=== PATIENT | female | born 1995 | race Caucasian/White ===

== ENCOUNTER 2016-08-11 16:22 | Emergency (ER) | payer MEDICAID, OTHER ==
[~2016-08-11] VITALS: Ht 165.1 cm; Wt 59.5 kg
[2016-08-11 16:45] VITALS: Ht 165.1 cm; Wt 59.5 kg
[2016-08-11 19:06] LABS: ADD SCAN DIFF NO
[2016-08-11 19:13] LABS: BASOPHIL # 0.1 10^3/ul (0.0-0.1); BASOPHILS % 0.6 % (0.0-2.0); EOSINOPHILS # 0.2 10^3/ul (0.0-0.5); EOSINOPHILS % 1.6 % (0.0-7.0); HEMATOCRIT 38.1 % (37.0-47.0); LYMPHOCYTES # 2.8 10^3/ul (0.8-2.9); LYMPHOCYTES % 23.3 % (15.0-51.0); MEAN CORPUSCULAR HEMOGLOBIN 29.1 pg (29.0-33.0); MEAN CORPUSCULAR HGB CONC 34.1 g/dl (32.0-37.0); MEAN CORPUSCULAR VOLUME 85.4 fl (82.0-101.0); MONOCYTE # 0.9 10^3/ul (0.3-0.9); NEUTROPHIL # 8.1 10^3/ul (1.6-7.5); NEUTROPHILS % 67.1 % (39.0-77.0); PLATELET COUNT 372 10^3/UL (140-415); RED BLOOD COUNT 4.46 10^6/ul (4.20-5.40); RED CELL DISTRIBUTION WIDTH 12.9 % (11.5-14.5); WHITE BLOOD COUNT 12.1 10^3/ul (4.8-10.8)
[2016-08-11 19:14] LABS: ADD UMIC YES; URINE BILIRUBIN (Dip) NEGATIVE (NEGATIVE); URINE BLOOD (Dip) TRACE (NEGATIVE); URINE COLOR LT. YELLOW (YELLOW); URINE GLUCOSE (Dip) NEGATIVE (NEGATIVE); URINE KETONES (Dip) NEGATIVE (NEGATIVE); URINE LEUKOCYTE ESTERASE (Dip) 1+ (NEGATIVE); URINE NITRITE (Dip) NEGATIVE (NEGATIVE); URINE TOTAL PROTEIN (Dip) NEGATIVE (NEGATIVE); URINE UROBILINOGEN (Dip) 0.2 E.U./dL (0.1-1.0)
[2016-08-11 19:32] LABS: BACTERIA,URINE MODERATE; SQUAMOUS EPITHELIAL CELL,UR MODERATE; URINE RBCS 0-2 /HPF (0)
--- NOTE | 2016-08-11 19:33 | RADRPT ---
PROCEDURE: US OB. CLINICAL INDICATION: Vaginal bleeding TECHNIQUE: Transabdominal views of the pelvis are available for review. COMPARISON: No prior studies are available for comparison. FINDINGS: There is a single intrauterine gestation with the crown-rump length measuring 0.7 cm, corresponding to a gestational age of 6 weeks and 4 days. The heart rate is noted at 122 bpm. The ovaries are normal in size and echogenicity. Normal Doppler flow is identified in both ovaries. The right ovary measures 2.4 x 1.7 cm. The left ovary measures 3.2 x 1.9 cm. There is no free fluid. RPTAT: AA IMPRESSION: Single live intrauterine with an estimated gestational age of 6 weeks and 4 days, based on ultrasound measurements. DEANNA based on ultrasound measurements is 04/02/17. .Sudeep Martinez MD, MD Date Time Electronically viewed and signed by .Sudeep Martinez MD, on 08/11/2016 19:32 .S/
[2016-08-11] MEDS ORDERED: ACETAMINOPHEN 500 MG TAB PO STA (20:18)
[2016-08-11] MEDS ORDERED: ACET500C5 PO (20:21)
[2016-08-11] MEDS ORDERED: CEPH-443 PO (20:21)
--- NOTE | 2016-08-11 20:27 | ERD ---
ER Documentation Chief Complaint Date/Time DATE: 08/11/16 TIME: 20:24 Chief Complaint VAGINAL BLEEDING,7 WEEKS HPI This 21-year-old female presents with vaginal spotting since yesterday. She notices on the toilet tissue. She was a small amount of clot on the tissue. She denies any bleeding when she was wiping. She has some mild low back pain but no pelvic cramping or significant pain. She denies fevers, vomiting, additional symptoms. She is a G1 para 0. ROS All systems reviewed and are negative except as per history of present illness. Medications Home Meds Active Scripts Acetaminophen* (Tylophen*) 500 Mg Capsule, 1 CAP PO Q6H Y for PAIN AND OR ELEVATED TEMP, #15 CAP Prov:EUGENE TABARES MD 08/11/16 Cephalexin* (Keflex*) 500 Mg Capsule, 500 MG PO QID for 5 Days, CAP Prov:EUGENE TABARES MD 08/11/16 Allergies Allergies: Coded Allergies: No Known Allergy (Unverified , 08/11/16) PMhx/Soc Medical and Surgical Hx: pt denies Medical Hx, pt denies Surgical Hx Hx Alcohol Use: No Hx Substance Use: No Hx Tobacco Use: No Smoking Status: Never smoker Physical Exam Vitals Vital Signs Date Time Temp Pulse Resp B/P Pulse Ox O2 Delivery O2 Flow Rate FiO2 08/11/16 16:45 98.0 86 18 124/62 98 Physical Exam Const: [] Alert, [id number] per Head: Atraumatic Eyes: Normal Conjunctiva ENT: Normal External Ears, Nose and Mouth. Neck: Full range of motion..~ No meningismus. Resp: Clear to auscultation bilaterally Cardio: Regular rate and rhythm, no murmurs Abd: Soft, non tender, non distended. Normal bowel sounds Skin: No petechiae or rashes Back: No midline or flank tenderness Ext: No cyanosis, or edema Neur: Awake and alert Psych: Normal Mood and Affect Result Diagram: 08/11/16 5415 Results 24 hrs Laboratory Tests Test 08/11/16 18:55 08/11/16 19:00 White Blood Count 12.110^3/ul Red Blood Count 4.4610^6/ul Hemoglobin 13.0g/dl Hematocrit 38.1% Mean Corpuscular Volume 85.4fl Mean Corpuscular Hemoglobin 29.1pg Mean Corpuscular Hemoglobin Concent 34.1g/dl Red Cell Distribution Width 12.9% Platelet Count 86548^3/UL Mean Platelet Volume 10.0fl Neutrophils % 67.1% Lymphocytes % 23.3% Monocytes % 7.0% Eosinophils % 1.6% Basophils % 0.6% Nucleated Red Blood Cells % 0.0/100WBC Neutrophils # 8.110^3/ul Lymphocytes # 2.810^3/ul Monocytes # 0.910^3/ul Eosinophils # 0.210^3/ul Basophils # 0.110^3/ul Nucleated Red Blood Cells # 0.010^3/ul Urine Color LT. YELLOW Urine Clarity SLIGHTLY CLOUDY Urine pH 6.0 Urine Specific [place] 1.025 Urine Ketones NEGATIVE Urine Nitrite NEGATIVE Urine Bilirubin NEGATIVE Urine Urobilinogen 0.2 E.U./dL Urine Leukocyte Esterase 1+ Urine Microscopic RBC 0-2/HPF Urine Microscopic WBC 5-10/HPF Urine Squamous Epithelial Cells MODERATE Urine Bacteria MODERATE Urine Hemoglobin TRACE Urine Glucose NEGATIVE% Urine Total Protein NEGATIVE Current Medications Medications (Trade) Dose Ordered Sig/Usha Route PRN Reason Start Time Stop Time Status Last Admin Dose Admin Cephalexin (Keflex) 500 mg ONCE ONCE PO 08/11/16 20:30 08/11/16 20:31 Acetaminophen (Tylenol Tab) 500 mg ONCE STAT PO 08/11/16 20:18 08/11/16 20:27 DC Procedures/MDM Urine shows leukocytes and bacteria and white blood cells. CBC shows slight leukocytosis otherwise no acute findings. Pelvic ultrasound shows a 6 week intrauterine with positive heart tones without evidence of adnexal or masses or acute complications. Patient was given Keflex 500 mg of mouth and Tylenol 500 mg by mouth. Patient is Rh+. Patient has signs of UTI and will be treated for this and vaginal bleeding of uncertain etiology first trimester without current evidence of adnexal , acute complications. She will be discharged home with follow-up with primary doctor and instructed to return to the ER for new or worsening symptoms. Signs or symptoms are not consistent with appendicitis, tubo-ovarian abscess, PID, Additional causes of lower abdominal or back pain or vaginal bleeding Departure Diagnosis: Primary Impression: UTI (urinary tract infection) Urinary tract infection type: acute cystitis Hematuria presence: without hematuria Qualified Code: N30.00 - Acute cystitis without hematuria Additional Impression: Vaginal bleeding in patient at less than 20 weeks ges... Condition: Stable Patient Instructions: Understanding Urinary Tract Infections (UTIs), Bleeding During Early Additional Instructions: ULTRSONIDO NORMAL. TIENE INFECCION EN ORINA. Cheque otro vez con jaramillo doctor primario en el proximo howard or regresa para mas o nueva simptomas. EUGENE TABARES MD Aug 11, 2016 20:26
[2016-08-11] MEDS ORDERED: CEPHALEXIN 500 MG CAP PO ONE (20:30)
[2016-08-11] MEDS ORDERED: CEPH125S21 PO (20:56)
[2016-08-11 21:11] VITALS: BP 138/68; PULSE 100; RESP 18; TEMP 98
== END 2016-08-11 21:11 | disposition home or self-care (01) ==
LOC: FTE 16:22
DX: O23.41 Unspecified infection of urinary tract in pregnancy, first trimester (principal); R10.2 Pelvic and perineal pain; Z3A.01 Less than 8 weeks gestation of pregnancy
CPT/HCPCS: 36415; 76801; 81001; 84702; 85025; 86900; 86901; Z7502; Z7610; 81003

== ENCOUNTER 2016-10-27 22:33 | Emergency (ER) | payer MEDICAID ==
[~2016-10-27] VITALS: Ht 162.6 cm; Wt 64.0 kg
[~2016-10-27 22:33] MED LIST: ACET500C5 PO; CEPH125S21 PO
[2016-10-27 22:36] VITALS: Ht 162.6 cm; Wt 64.0 kg
[2016-10-27 23:41] LABS: ADD SCAN DIFF NO
[2016-10-27 23:43] LABS: BASOPHILS % 0.3 % (0.0-2.0); EOSINOPHILS # 0.2 10^3/ul (0.0-0.5); EOSINOPHILS % 1.8 % (0.0-7.0); HEMATOCRIT 31.4 % (37.0-47.0); HEMOGLOBIN 10.9 g/dl (12.0-16.0); LYMPHOCYTES # 2.8 10^3/ul (0.8-2.9); MEAN CORPUSCULAR HEMOGLOBIN 29.7 pg (29.0-33.0); MEAN CORPUSCULAR HGB CONC 34.7 g/dl (32.0-37.0); MEAN CORPUSCULAR VOLUME 85.6 fl (82.0-101.0); MONOCYTES % 8.2 % (0.0-11.0); NEUTROPHIL # 7.9 10^3/ul (1.6-7.5); NEUTROPHILS % 66.1 % (39.0-77.0); PLATELET COUNT 365 10^3/UL (140-415); RED BLOOD COUNT 3.67 10^6/ul (4.20-5.40); RED CELL DISTRIBUTION WIDTH 13.4 % (11.5-14.5)
[2016-10-27 23:47] LABS: ADD UMIC NO; URINE BILIRUBIN (Dip) NEGATIVE (NEGATIVE); URINE BLOOD (Dip) NEGATIVE (NEGATIVE); URINE COLOR LT. YELLOW (YELLOW); URINE GLUCOSE (Dip) NEGATIVE (NEGATIVE); URINE KETONES (Dip) NEGATIVE (NEGATIVE); URINE LEUKOCYTE ESTERASE (Dip) NEGATIVE (NEGATIVE); URINE NITRITE (Dip) NEGATIVE (NEGATIVE); URINE TOTAL PROTEIN (Dip) NEGATIVE (NEGATIVE); URINE UROBILINOGEN (Dip) 0.2 E.U./dL (0.1-1.0)
--- NOTE | 2016-10-28 00:01 | RADRPT ---
PROCEDURE: Obstetrical ultrasound greater than 14 weeks CLINICAL INDICATION: Vaginal bleeding TECHNIQUE: Real time sonographic imaging of the gravid uterus is performed transabdominally and mu ltiple static bansal scale and Doppler images are submitted for review as are measurements. The image s are reviewed on the PACS. COMPARISON: 08/11/2016 FINDINGS: There is a single living intrauterine gestation in cephalic presentation. The heart beat is estimated at 150 bpm. The measurements are as follows: BPD:4.14 cm HC:15.23 cm AC:12.84 cm FL:2.81 cm Estimated gestational age is 18 weeks 3 days. The estimated date of delivery is 03/27/2017. The estimated weight is 242 grams. Placenta is posterior and grade 0. There is no evidence of placenta previa or abruption. The amniotic fluid index is normal, the maximum vertical pocket estimated at 3.4 cm. RPTAT:HJJR IMPRESSION: 1. Single viable intrauterine gestation estimated at 18 weeks 3 days, appropriate interval growth co mpared to the exam of 08/11/2016 with the estimated date of delivery 03/27/2017. 2. Posterior grade 0 placenta without abruption or placenta previa. Physician Jarad Date Time Electronically viewed and signed by Physician Jarad on 10/28/2016 00:00 /
--- NOTE | 2016-10-28 00:05 | ERA ---
ER Documentation Chief Complaint Date/Time DATE: 10/28/16 TIME: 00:04 Chief Complaint vaginal bleeding/abd pain x 1 day, states 19 weeks HPI This is a 21-year-old female who is 18 weeks . Denies any medical conditions. Patient has a chief complaint of small amount of bleeding when wiping and pain that she rates 3 out of 10 in the lower pelvic area. Symptoms started approximately 12 hours ago; last bleeding episode occurred 12 hours ago with no bleeding since onset. Rates the pain as a 1-3 out of 10. Patient quantifies bleeding is just a little bit on a piece of toilet paper after wiping. Patient denies any tissue with the bleeding, discharge, foul smell, headache, alleviating factors, aggravating factors or similar symptoms in the past. Patient has not done anything to relieve the symptoms. ROS All systems reviewed and are negative except as per history of present illness. Medications Home Meds Active Scripts Cephalexin* (Keflex* Susp) 125 Mg/5 Ml Susp.recon, 500 MG PO QID for 5 Days, #1 BOTTLE Prov:KAT BONDS PA-C 08/11/16 Acetaminophen* (Tylophen*) 500 Mg Capsule, 1 CAP PO Q6H Y for PAIN AND OR ELEVATED TEMP, #15 CAP Prov:EUGENE TABARES MD 08/11/16 Allergies Allergies: Coded Allergies: No Known Allergy (Unverified , 10/27/16) PMhx/Soc Hx Alcohol Use: No Hx Substance Use: No Hx Tobacco Use: No Physical Exam Vitals Vital Signs Date Time Temp Pulse Resp B/P Pulse Ox O2 Delivery O2 Flow Rate FiO2 10/27/16 22:36 98.5 82 20 120/60 100 Physical Exam Const: Well-appearing no acute distress presenting with significant other. Head: Atraumatic normocephalic Eyes: Normal Conjunctiva ENT: Normal External Ears, Nose and Mouth. Neck: Full range of motion..~ No meningismus. Resp: Clear to auscultation bilaterally Cardio: Regular rate and rhythm, no murmurs Abd: Soft, non tender, non distended. Normal bowel sounds. Palpation of fundal height was within normal limits. No suprapubic tenderness. Skin: No petechiae or rashes Back: No midline or flank tenderness. No CVA tenderness. Ext: No cyanosis, or edema Neur: Awake and alert. Neurovascularly intact bilaterally Psych: Normal Mood and Affect Gynecological exam deferred. Result Diagram: 10/27/16 2323 Results 24 hrs Laboratory Tests Test 10/27/16 23:23 White Blood Count 12.010^3/ul Red Blood Count 3.6710^6/ul Hemoglobin 10.9g/dl Hematocrit 31.4% Mean Corpuscular Volume 85.6fl Mean Corpuscular Hemoglobin 29.7pg Mean Corpuscular Hemoglobin Concent 34.7g/dl Red Cell Distribution Width 13.4% Platelet Count 11576^3/UL Mean Platelet Volume 10.0fl Neutrophils % 66.1% Lymphocytes % 23.0% Monocytes % 8.2% Eosinophils % 1.8% Basophils % 0.3% Nucleated Red Blood Cells % 0.0/100WBC Neutrophils # 7.910^3/ul Lymphocytes # 2.810^3/ul Monocytes # 1.010^3/ul Eosinophils # 0.210^3/ul Basophils # 0.010^3/ul Nucleated Red Blood Cells # 0.010^3/ul Urine Color LT. YELLOW Urine Clarity CLEAR Urine pH 7.0 Urine Specific [place] 1.015 Urine Ketones NEGATIVE Urine Nitrite NEGATIVE Urine Bilirubin NEGATIVE Urine Urobilinogen 0.2 E.U./dL Urine Leukocyte Esterase NEGATIVE Urine Hemoglobin NEGATIVE Urine Glucose NEGATIVE% Urine Total Protein NEGATIVE Beta HCG, Quantitative 95736.0mIU/ml Procedures/MDM Patient was evaluated and worked up for pelvic pain and bleeding as described in the history and physical exam. Patient was given Tylenol in the ED for symptomatic relief with relief of symptoms. The workup included ultrasound, labs and urine analysis. All of the results were within normal limits the current most likely diagnosis is threatened . The ultrasound was read by the radiologist and the impression was as follows: 1. Single viable intrauterine gestation estimated at 18 weeks 3 days, appropriate interval growth compared to the exam of 08/11/2016 with the estimated date of delivery 03/27/2017. 2. Posterior grade 0 placenta without abruption or placenta previa. The plan will thus include conservative therapy and bedrest 2 days with follow- up with her DELIMER. The patient has been given labs and ultrasound results. I reviewed the results with my attending Dr. Law who is agreed with the assessment and plan. At this time I do not suspect infection, ovarian torsion, tubo-ovarian abscess, mechanical obstruction, ectopic , hernia, appendicitis, intestinal ischemia, PID, AAA, diverticulitis or cystitis. The RN Ayaan has been the wood patternmaker apprentice. Patient is well-appearing her pain has subsided. She has verbally responded that they understand their status and treatment plan. The patients vitals are stable, and their current condition is appropriate for discharge. The patient will be given discharge instructions with return precautions. Departure Diagnosis: Primary Impression: Threatened affecting intrauterine Additional Impression: Threatened in second trimester Condition: JAHAIRA Hoyt PA-C Oct 28, 2016 00:05
[2016-10-28 01:43] VITALS: BP 115/54; PULSE 75; RESP 15; TEMP 98.1
== END 2016-10-28 01:44 | disposition home or self-care (01) ==
LOC: FTE 22:33
DX: O20.0 Threatened abortion (principal); Z3A.18 18 weeks gestation of pregnancy
CPT/HCPCS: 36415; 76805; 81003; 84702; 85025; 86900; 86901; Z7502

== ENCOUNTER 2017-01-24 11:53 | Outpatient (CLI) | payer MEDICAID ==
[~2017-01-24] VITALS: Ht 154.9 cm; Wt 71.8 kg
[2017-01-24 12:22] VITALS: Ht 154.9 cm; Wt 71.8 kg
[2017-01-24 12:23] VITALS: BP 122/55; PULSE 66; RESP 20
[2017-01-24] MEDS ORDERED: PRENAT PO (12:26)
[2017-01-24] MEDS ORDERED: FOLI20CA PO (12:26)
--- NOTE | 2017-01-24 13:37 | RADRPT ---
PROCEDURE: OB ultrasound for biophysical profile CLINICAL INDICATION: Gestational diabetes TECHNIQUE: Multiple sonographic images of the pelvis were obtained. Transabdominal views of the g ravid uterus are available for review. The images were reviewed on a PACS workstation. COMPARISON: None FINDINGS: breathing movement = 2/2 tone = 2/2 motion = 2/2 JOSE MANUEL = 2/2 JOSE MANUEL = 15.3 cm Single live intrauterine with cardiac activity of 136 bpm. position is cephal ic. The placenta is posterior. IMPRESSION: 1. Single live intrauterine gestation. 2. Biophysical profile = 8/8. 3. JOSE MANUEL = 15.3 cm. RPTAT: HH .Lynsey Tsai MD, MD Date Time Electronically viewed and signed by .Lynsey Tsai MD, on 01/24/2017 13:36 .G/
--- NOTE | 2017-01-24 15:01 | RADRPT ---
PROCEDURE: Limited obstetric ultrasound CLINICAL INDICATION: Pain TECHNIQUE: Multiple transverse and longitudinal grayscale images of the pelvis were obtained bergeron svaginally.. COMPARISON: same day FINDINGS: The cervix is closed with a length of 4.4 cm. RPTAT: AA IMPRESSION: Cervix length measures 4.4 cm. .Sudeep Martinez MD, MD Date Time Electronically viewed and signed by .Sudeep Martinez MD, on 01/24/2017 15:01 .S/
[2017-01-24] MEDS: LACTATED RINGER'S 1,000 ML IV SCH ×2 (15:24→17:18)
[2017-01-24 19:24] LABS: BASOPHIL # 0.1 10^3/ul (0.0-0.1); BASOPHILS % 0.4 % (0.0-2.0); EOSINOPHILS # 0.1 10^3/ul (0.0-0.5); EOSINOPHILS % 0.8 % (0.0-7.0); HEMATOCRIT 34.1 % (37.0-47.0); HEMOGLOBIN 11.3 g/dl (12.0-16.0); LYMPHOCYTES # 2.5 10^3/ul (0.8-2.9); LYMPHOCYTES % 19.2 % (15.0-51.0); MEAN CORPUSCULAR HEMOGLOBIN 28.1 pg (29.0-33.0); MEAN CORPUSCULAR HGB CONC 33.1 g/dl (32.0-37.0); MEAN CORPUSCULAR VOLUME 84.8 fl (82.0-101.0); MEAN PLATELET VOLUME 11.4 fl (7.4-10.4); MONOCYTE # 0.8 10^3/ul (0.3-0.9); MONOCYTES % 6.4 % (0.0-11.0); NEUTROPHILS % 72.5 % (39.0-77.0); NUCLEATED RED BLOOD CELLS% 0.2 /100WBC (0.0-0.0); PLATELET COUNT 451 10^3/UL (140-415); RED BLOOD COUNT 4.02 10^6/ul (4.20-5.40); RED CELL DISTRIBUTION WIDTH 14.6 % (11.5-14.5)
[2017-01-24 19:29] LABS: ADD UMIC NO; UR ASCORBIC ACID NEGATIVE (NEGATIVE); UR BILIRUBIN (Dip) NEGATIVE (NEGATIVE); UR BLOOD (Dip) NEGATIVE (NEGATIVE); UR CLARITY CLEAR (CLEAR); UR COLOR STRAW (YELLOW); UR GLUCOSE (Dip) NEGATIVE (NEGATIVE); UR KETONES (Dip) NEGATIVE (NEGATIVE); UR LEUKOCYTE ESTERASE (Dip) NEGATIVE Leu/ul (NEGATIVE); UR NITRITE (Dip) NEGATIVE (NEGATIVE); UR SPECIFIC GRAVITY (Dip) 1.004 (1.003-1.030); UR TOTAL PROTEIN (Dip) NEGATIVE (NEGATIVE); UR UROBILINOGEN (Dip) NEGATIVE (NEGATIVE)
--- NOTE | 2017-01-24 19:33 | CONS ---
Date/Time of Note Date/Time of Note DATE: 01/24/17 TIME: 19:23 Consultation Date/Type/Reason Admit Date/Time January 24, 2017 OB triage consult This patient is a 21 years old 1 para 0 with estimated date of confinement of 04/01/2017 which makes her about 30 weeks and 3 days now. She developed gestational diabetes mellitus during this and being followed in the clinic with this diagnosis . she was referred to [facility] clinic here for biophysical profile and [facility]. However apparently she started having contractions and came to triage to be evaluated. On examination she is a well-developed well-nourished lady near term her general vital signs appears to be normal with blood pressure 122/ 55 ,ulse rate 66, respiration 18, temperature 98.9. Her body weight is 71.8 kg. On examination abdomen was soft she just had occasional contraction heart tone was normal with fairly good variability occasional acceleration no decelerations.. A pelvic examination was performed cervix was closed long and thick membrane was intact. Reason for Consultation Laboratory Tests Test 01/24/17 18:30 White Blood Count 13.010^3/ul Red Blood Count 4.0210^6/ul Hemoglobin 11.3g/dl Hematocrit 34.1% Mean Corpuscular Volume 84.8fl Mean Corpuscular Hemoglobin 28.1pg Mean Corpuscular Hemoglobin Concent 33.1g/dl Red Cell Distribution Width 14.6% Platelet Count 23007^3/UL Mean Platelet Volume 11.4fl Neutrophils % 72.5% Lymphocytes % 19.2% Monocytes % 6.4% Eosinophils % 0.8% Basophils % 0.4% Nucleated Red Blood Cells % 0.2/100WBC Neutrophils # (Manual) 9.410^3/ul Lymphocytes # 2.510^3/ul Monocytes # 0.810^3/ul Eosinophils # 0.110^3/ul Basophils # 0.110^3/ul Nucleated Red Blood Cells # 0.010^3/ul Current Medications Medications (Trade) Dose Ordered Sig/Usha Route PRN Reason Start Time Stop Time Status Last Admin Dose Admin Lactated Ringer's (Lr) 1,000 ml @ 125 mls/hr Q8H IV 01/24/17 15:00 01/24/17 17:18 125 MLS/HR Constitutional: No chills, No diaphoresis, No disoriented, No febrile, No improved, No no complaints, No other, No poor po, No requiring IVF, No requiring O2 Eyes: No discharge, No no complaints, No other, No pain, No redness, No visual change ENT: No bleeding, No congestion, No discharge, No dysphagia, No no complaints, No other, No pain, No sore throat Respiratory: No cough, No no complaints, No other, No pain, No pleuritic pain, No shortness of breath, No sputum, No wheezing Cardiovascular: No chest pain, No edema, No lightheadedness, No no complaints, No orthopenea, No other, No palpitations, No paroxysmal nocturnal dyspnea Gastrointestinal: No blood, No constipation, No decreased appetite, No diarrhea , No flatus, No nausea, No no complaints, No other, No pain, No passing stool, No vomiting Genitourinary: other (As I mentioned her cervix was closed thick and high), No bleeding, No discharge, No dysuria, No flank pain, No hematuria, No no complaints Musculoskeletal: No back pain, No bone/joint pain, No neck pain, No no complaints, No other, No restricted range of motion, No swelling Skin: No bruising, No erythema, No laceration, No no complaints, No other, No pruritis, No rash, No skin lesions Neurologic: other (Knee-jerk reflex was normal), No confusion, No dizziness, No focal-weakness, No headache, No no complaints , No seizure, No syncope Endocrine: No dry skin, No no complaints, No other, No polydypsia, No polyuria , No temp intolerance Additional Comments On ultrasound study the report is single live intrauterine gestation with cardiac activity 136 bpm fetus in cephalic position position placenta is posterior biophysical profile was reported 12/27 amniotic fluid index 15.3 cm.Disposition: With these finding patient was discharged home to be followed in her obstetricians clinic and to return to [facility] clinic for follow-up on her GDM. : Social History Smoking Status: Never smoker Exam/Review of Systems Vital Signs Vitals Vital Signs Date Time Temp Pulse Resp B/P Pulse Ox O2 Delivery O2 Flow Rate FiO2 01/24/17 12:23 98.9 66 20 122/55 Results Results 24 hrs Laboratory Tests Test 01/24/17 18:30 White Blood Count Pending Red Blood Count Pending Hemoglobin Pending Hematocrit Pending Mean Corpuscular Volume Pending Mean Corpuscular Hemoglobin Pending Mean Corpuscular Hemoglobin Concent Pending Red Cell Distribution Width Pending Platelet Count Pending Mean Platelet Volume Pending Medications Medications Current Medications Lactated Ringer's (Lr) 1,000 ml @ 125 mls/hr Q8H IV Last administered on t 17:18; Admin Dose 125 MLS/HR; Start 01/24/17 at 15:00 SANJAY BANKS MD Jan 24, 2017 19:33
== END 2017-01-24 20:00 | disposition home or self-care (01) ==
LOC: OBG 11:53 → OBT 11:53
PROVIDERS: ATTEND Obstetrics & Gynecology
DX: O24.419 Gestational diabetes mellitus in pregnancy, unspecified control (principal); Z3A.30 30 weeks gestation of pregnancy
CPT/HCPCS: 59025; 76817; 76818; 81003; 85025; J7120; Z7500; G0463

== ENCOUNTER 2017-01-26 13:14 | Outpatient (CLI) | payer MEDICAID ==
[~2017-01-26] VITALS: Ht 154.9 cm; Wt 72.7 kg
[~2017-01-26 13:14] MED LIST changes: -ACET500C5 PO; -CEPH125S21 PO; +FOLI20CA PO; +PRENAT PO
[2017-01-26 13:32] VITALS: Ht 154.9 cm; Wt 72.7 kg
[2017-01-26 13:33] VITALS: BP 109/67; PULSE 93; RESP 20
--- NOTE | 2017-01-26 15:07 | RADRPT ---
PROCEDURE: US OB biophysical profile. CLINICAL INDICATION: decreased movements, GDM TECHNIQUE: Multiple sonographic images of the pelvis were obtained. The images were reviewed on a PACS workstation. COMPARISON: US PELVIS 01/24/2017 FINDINGS: There is a single viable intrauterine gestation. Cardiac activity is present with 163 beats per min onelia. There is a vertex presentation. The placenta is posterior. There is no evidence of placental abruption. There is a normal amount of amniotic fluid with an JOSE MANUEL = 17.6 cm. Biophysical profile: movement 2/2 tone 2/2. breathing 2/2 JOSE MANUEL 2/2 Total 12/27 RPTAT: AA . IMPRESSION: Normal biophysical profile. . .Sudeep Martinez MD, MD Date Time Electronically viewed and signed by .Sudeep Martinez MD, MD on 01/26/2017 15:06 .S/
--- NOTE | 2017-01-26 16:20 | TRIAGE ---
OB Triage Datetime Report Generated by CPN: 01/26/2017 16:19 Datetime: 01/26/2017 15:35 Stage of : OB Triage Datetime: 01/26/2017 15:30 Stage of : OB Triage Datetime: 01/26/2017 15:21 Labor Evaluation Frequency: 0 Monitor Mode: External Quality: Mild Resting Tone [place]: Relaxed Heart Rate FHR Baseline Rate: 135 Monitor Mode: External US Variability: Moderate 6-25 bpm Accelerations: 10X10 Decelerations: None Category: Category I Pain Assessment Pain Scale: 0 Pain Presence: None/Denies Pain Type: N/A Pain Goal: 3 Pain Relief Measures: Comfort Measures Datetime: 01/26/2017 14:35 Labor Evaluation Frequency: 0 Monitor Mode: External Pattern: Normal: <= 5 Contractions in 10 Minutes Resting Tone [place]: Relaxed Heart Rate FHR Baseline Rate: 135 Monitor Mode: External US Variability: Moderate 6-25 bpm Accelerations: 10X10 Decelerations: None Category: Category I Pain Assessment Pain Scale: 0 Pain Presence: None/Denies Pain Type: N/A Pain Goal: 3 Pain Relief Measures: Comfort Measures Datetime: 01/26/2017 13:36 Labor Evaluation Frequency: 0 Monitor Mode: External Resting Tone [place]: Relaxed Heart Rate FHR Baseline Rate: 140 Monitor Mode: External US FHR Baseline Changes: No Baseline Change Accelerations: 10X10 Decelerations: None Category: Category I Pain Assessment Pain Scale: 0 Pain Presence: None/Denies Datetime: 01/26/2017 13:12 Stage of : OB Triage Time of Arrival: 01/26/2017 13:12 EGA: 30.5 Arrived By: Ambulatory Arrived From: Home Chief Complaint: GDM HERE FOR NST AND BPP Movement: Present Contractions: Denies/Absent Rupture of Membranes: Denies Vaginal Bleeding: None Vaginal Discharge: Denies Recent Sexual Intercouse: Denies Abdominal Trauma: Not Applicable Patient Complaints: None; Other Time Provider Notified: 01/26/2017 15:30 Provider Notified: eshaghian Initial Plan: NST, BPP Maternal Assessment Level of Consciousness: Fully Conscious DTR's/Clonus: DTRs 2+; No Clonus Headache: Denies Breath Sounds, Left: Clear and Equal Breath Sounds, Right: Clear and Equal Nausea/Vomiting: Denies RUQ Epigastric Pain: Denies Temperature Route: Axillary Temperature Route: Oral Monitor Mode: External Monitor Mode: External US Datetime: 01/24/2017 20:00 Stage of : Antepartum Datetime: 01/24/2017 19:40 Stage of : Antepartum Datetime: 01/24/2017 19:31 Contraction Comments: MONITORS OFF Comments: MONITORS OFF Pain Assessment Pain Scale: 0 Pain Presence: None/Denies Pain Type: N/A Pain Assessment Comments: ABDOMEN SOFT ON PALPATION Datetime: 01/24/2017 19:30 Labor Evaluation Frequency: IRREGULAR Monitor Mode: External Duration (sec)2399: 50-70 Quality: Mild Pattern: Normal: <= 5 Contractions in 10 Minutes Resting Tone [place]: Relaxed Heart Rate FHR Baseline Rate: 135 Monitor Mode: External US Variability: Moderate 6-25 bpm Accelerations: 15X15 Decelerations: None Category: Category I Membrane Status: Intact Datetime: 01/24/2017 18:36 Labor Evaluation Frequency: IRREG Monitor Mode: External Duration (sec)2399: 80 Quality: Mild Resting Tone [place]: Relaxed Heart Rate FHR Baseline Rate: 125 Monitor Mode: External US FHR Baseline Changes: No Baseline Change Variability: Moderate 6-25 bpm Accelerations: 10X10 Decelerations: None Category: Category I Vaginal Exam Dilatation (cms): 0.0 Effacement (%): 0 Station: -3 (Annotations: POSTERIOR) Exam By: DR FOROOHAR Membrane Status: Intact Datetime: 01/24/2017 18:30 Vaginal Exam Dilatation (cms): unable to contact dr eshaghian x2 per juarez arellano,laborist notified and came a nd evaluated pt,sve done cx closed,will d/c pt when contractions spaced out Datetime: 01/24/2017 17:59 Labor Evaluation Frequency: 5/hr Monitor Mode: External Duration (sec)2399: 30-80 Quality: Mild Resting Tone [place]: Relaxed Contraction Comments: pt denies feeling contractions. Heart Rate FHR Baseline Rate: 130 FHR Baseline Changes: No Baseline Change Variability: Moderate 6-25 bpm Accelerations: 15X15 Decelerations: None Category: Category I Datetime: 01/24/2017 17:02 Heart Rate FHR Baseline Rate: 130 Monitor Mode: External US FHR Baseline Changes: No Baseline Change Variability: Moderate 6-25 bpm Accelerations: 15X15 Decelerations: None Category: Category I Datetime: 01/24/2017 17:00 Labor Evaluation Frequency: X3/HR Monitor Mode: External Quality: Mild Contraction Comments: PT DOES NOT FEEL CONTRACTIONS Heart Rate FHR Baseline Rate: 130 Monitor Mode: External US FHR Baseline Changes: No Baseline Change Variability: Moderate 6-25 bpm Accelerations: 10X10 Decelerations: None Category: Category I Datetime: 01/24/2017 16:02 Labor Evaluation Frequency: 3 Monitor Mode: External Duration (sec)2399: 80-100 Resting Tone [place]: Relaxed Contraction Comments: abd soft. pt denies feeling contractions Heart Rate FHR Baseline Rate: 130 Monitor Mode: External US FHR Baseline Changes: No Baseline Change Variability: Moderate 6-25 bpm Accelerations: 15X15 Decelerations: None Category: Category I Datetime: 01/24/2017 15:02 Labor Evaluation Frequency: 3 Monitor Mode: External Duration (sec)2399: 70-80 Resting Tone [place]: Relaxed Heart Rate FHR Baseline Rate: 130 Monitor Mode: External US FHR Baseline Changes: No Baseline Change Variability: Moderate 6-25 bpm Accelerations: 15X15 Decelerations: None Category: Category I Datetime: 01/24/2017 14:29 Contraction Comments: pt denies feeling any contractions or cramping Datetime: 01/24/2017 13:59 Labor Evaluation Frequency: 2 with irritabiliity Monitor Mode: External Duration (sec)2399: 60 Quality: Mild Resting Tone [place]: Relaxed Contraction Comments: pt does not feel contractions Heart Rate FHR Baseline Rate: 130 Monitor Mode: External US FHR Baseline Changes: No Baseline Change Variability: Moderate 6-25 bpm Accelerations: 15X15 Decelerations: None Category: Category I Datetime: 01/24/2017 13:02 Labor Evaluation Frequency: occasional Monitor Mode: External Quality: Mild Resting Tone [place]: Relaxed Contraction Comments: fetus is very active, denies feeling cramping or contractions Heart Rate FHR Baseline Rate: 130 Monitor Mode: External US FHR Baseline Changes: No Baseline Change Variability: Moderate 6-25 bpm Accelerations: 15X15 Decelerations: None Category: Category I Pain Presence: None/Denies Datetime: 01/24/2017 12:15 Assessment Type: Triage Maternal Assessment Level of Consciousness: Fully Conscious DTR's/Clonus: DTRs 2+; No Clonus Headache: Denies Blurred Vision: No Respiratory Effort: Unlabored; Regular Rhythm; Equal Expansion Breath Sounds, Left: Clear and Equal Breath Sounds, Right: Clear and Equal Nausea/Vomiting: Denies RUQ Epigastric Pain: Denies Facial Edema: None Fall Risk Assessment History of Falling: (0) No Secondary Diagnosis: (0) No Ambulatory Aid: (0) Bedrest/Nurse Assist IV Therapy: (0) No Gait: (0) Normal/Bedrest/Immobile Mental Status: (0) Oriented to Own Ability Fall Score: 0 Fall Risk Score Definition: No Risk: No action required Datetime: 01/24/2017 12:14 Labor Evaluation Frequency: 0 Monitor Mode: External Resting Tone [place]: Relaxed Heart Rate FHR Baseline Rate: 135 Monitor Mode: External US FHR Baseline Changes: No Baseline Change Variability: Moderate 6-25 bpm Accelerations: 15X15 Decelerations: None Category: Category I Datetime: 01/24/2017 12:12 Time of Arrival: 01/24/2017 12:00 EGA: 30.3 Chief Complaint: here for nst bpp, a1dm, newly diagnosed. fbs 107 Movement: Present Contractions: Denies/Absent Rupture of Membranes: Denies Vaginal Bleeding: None Vaginal Discharge: Denies Recent Sexual Intercouse: Denies Abdominal Trauma: Not Applicable Patient Complaints: None Initial Plan: efm,nst,bpp Datetime: 01/24/2017 12:08 Time of Arrival: 01/24/2017 12:08
--- NOTE | 2017-01-26 18:15 | CONS ---
Date/Time of Note Date/Time of Note DATE: 01/26/17 TIME: 18:07 Consultation Date/Type/Reason Admit Date/Time January 26, 2017 OB triage consult Reason for Consultation This patient is a 21 years old 1 para 0 with estimated date of confinement of April 01, 2017 which makes her 30 weeks and 5 days today. She developed gestational diabetes Pitocin during this and she was referred to the clinic for evaluation and monitoring On examination she is a well-developed well-nourished lady with blood pressure of 109/65, pulse rate 90, respiration 20, temperature 97.9, and oxygen saturation of 97% at room temperature. On examination of the abdomen fundus is soft basically no contractions heart tone is normal with fairly good variability and occasional acceleration no decelerations. Constitutional: No chills, No diaphoresis, No disoriented, No febrile, No improved, No no complaints, No other, No poor po, No requiring IVF, No requiring O2 ENT: No bleeding, No congestion, No discharge, No dysphagia, No no complaints, No other, No pain, No sore throat Respiratory: No cough, No no complaints, No other, No pain, No pleuritic pain, No shortness of breath, No sputum, No wheezing Cardiovascular: No chest pain, No edema, No lightheadedness, No no complaints, No orthopenea, No other, No palpitations, No paroxysmal nocturnal dyspnea Gastrointestinal: No blood, No constipation, No decreased appetite, No diarrhea , No flatus, No nausea, No no complaints, No other, No pain, No passing stool, No vomiting Genitourinary: No bleeding, No discharge, No dysuria, No flank pain, No hematuria, No no complaints, No other Musculoskeletal: other (Pelvic examination was not performed due to the fact that she did not have any contractions), No back pain, No bone/joint pain, No neck pain, No no complaints, No restricted range of motion, No swelling Skin: No bruising, No erythema, No laceration, No no complaints, No other, No pruritis, No rash, No skin lesions Neurologic: No confusion, No dizziness, No focal-weakness, No headache, No no complaints, No other, No seizure, No syncope Endocrine: No dry skin, No no complaints, No other, No polydypsia, No polyuria , No temp intolerance Additional Comments On ultrasound study the result was a single viable intrauterine gestation with cardiac activity 163 bpm in vertex presentation amniotic fluid index was 17.6 cm her biophysical profile Was 8/8. Disposition with these finding patient was discharged home to be followed in the clinic and return for further evaluation later. Social History Smoking Status: Never smoker Exam/Review of Systems Vital Signs Vitals Vital Signs Date Time Temp Pulse Resp B/P Pulse Ox O2 Delivery O2 Flow Rate FiO2 01/26/17 13:33 97.7 93 20 109/67 97 Room Air SANJAY BANKS MD Jan 26, 2017 18:15
== END 2017-01-26 16:00 | disposition home or self-care (01) ==
LOC: L-D 13:14 → OBT 13:14
PROVIDERS: ATTEND Obstetrics & Gynecology
DX: O24.419 Gestational diabetes mellitus in pregnancy, unspecified control (principal); Z3A.30 30 weeks gestation of pregnancy
CPT/HCPCS: 76818; Z7500; G0463

== ENCOUNTER 2017-01-30 12:21 | Outpatient (CLI) | payer MEDICAID ==
[~2017-01-30] VITALS: Ht 154.9 cm; Wt 72.6 kg
[2017-01-30 12:37] VITALS: Ht 154.9 cm; Wt 72.6 kg
[2017-01-30 12:38] VITALS: BP 112/56; PULSE 77; RESP 18
--- NOTE | 2017-01-30 14:43 | RADRPT ---
PROCEDURE: OB ultrasound for biophysical profile CLINICAL INDICATION: Gestational diabetes mellitus. TECHNIQUE: Multiple sonographic images of the pelvis were obtained. Transabdominal view of the gr avid uterus are available for review. The images were reviewed on a PACS workstation. COMPARISON: 01/26/2017. FINDINGS: breathing movement = 2/2 tone = 2/2 motion = 2/2 Quantitative amniotic fluid volume = 2/2 JOSE MANUEL = 14.2 cm Single live intrauterine with cardiac activity at 148 beats per minute. There is a posterior placenta without previa or abruption. IMPRESSION: 1. Single living intrauterine gestation in cephalic position. 2. Biophysical profile = 8/8. 3. JOSE MANUEL = 14.2 cm. RPTAT: [facility] Physician Anne Date Time Electronically viewed and signed by Physician Anne on 01/30/2017 14:42 /
--- NOTE | 2017-01-30 15:43 | TRIAGE ---
OB Triage Datetime Report Generated by CPN: 01/30/2017 15:42 Datetime: 01/30/2017 12:44 Stage of : OB Triage Maternal Assessment Level of Consciousness: Fully Conscious Labor Evaluation Frequency: NONE Monitor Mode: External Resting Tone [place]: Relaxed Heart Rate FHR Baseline Rate: 135 Monitor Mode: External US Variability: Moderate 6-25 bpm Accelerations: 15X15 Decelerations: None Category: Category I Pain Assessment Pain Scale: 0 Pain Goal: 3 Vaginal Exam Membrane Status: Intact Vaginal Bleeding: None Datetime: 01/30/2017 12:34 Assessment Type: Triage Maternal Assessment Level of Consciousness: Fully Conscious DTR's/Clonus: DTRs 2+; No Clonus Headache: Denies Blurred Vision: No Respiratory Effort: Unlabored; Regular Rhythm; Equal Expansion Breath Sounds, Left: Clear and Equal Breath Sounds, Right: Clear and Equal Nausea/Vomiting: Denies RUQ Epigastric Pain: Denies Lower Extremities Edema: None Degree: None Upper Extremities Edema: None Degree: None Facial Edema: None Fall Risk Assessment History of Falling: (0) No Secondary Diagnosis: (0) No Ambulatory Aid: (0) Bedrest/Nurse Assist IV Therapy: (0) No Gait: (0) Normal/Bedrest/Immobile Mental Status: (0) Oriented to Own Ability Fall Score: 0 Fall Risk Score Definition: No Risk: No action required Datetime: 01/30/2017 12:33 Time of Arrival: 01/30/2017 12:14 EGA: 31.2 Arrived By: Ambulatory Arrived From: Home Chief Complaint: PT HERE FOR NST/BPP FOR A1DM Movement: Present Contractions: Denies/Absent Rupture of Membranes: Denies Vaginal Bleeding: None Vaginal Discharge: Denies Recent Sexual Intercouse: Denies Abdominal Trauma: Not Applicable Patient Complaints: None Time Provider Notified: 01/30/2017 15:15 Provider Notified: ESHAGHIAN Initial Plan: NST/BPP Datetime: 01/30/2017 12:21 Monitor Mode: External Monitor Mode: External US Datetime: 01/26/2017 13:12 EGA: 30.5 Datetime: 01/24/2017 12:15 Fall Score: 0 Fall Risk Score Definition: No Risk: No action required Datetime: 01/24/2017 12:12 EGA: 30.3
--- NOTE | 2017-01-30 18:46 | QN ---
Documentation Comment iup 27 weeks GDM vss BS wnl nst reactive a/p iup 27 weeks GDM stable DC derby DEACON DUMONT MD Jan 30, 2017 18:46
== END 2017-01-30 15:30 | disposition home or self-care (01) ==
LOC: L-D 12:21 → OBT 12:21
PROVIDERS: ATTEND Obstetrics & Gynecology
DX: O24.419 Gestational diabetes mellitus in pregnancy, unspecified control (principal); Z3A.27 27 weeks gestation of pregnancy
CPT/HCPCS: 76818; Z7500; G0463

== ENCOUNTER 2017-02-02 14:10 | Outpatient (CLI) | payer MEDICAID ==
[~2017-02-02] VITALS: Ht 154.9 cm; Wt 72.6 kg
[2017-02-02 14:29] VITALS: Ht 154.9 cm; Wt 72.6 kg
[2017-02-02 14:30] VITALS: BP 113/60; PULSE 68
--- NOTE | 2017-02-02 14:41 | RADRPT ---
PROCEDURE: OB ultrasound for biophysical profile CLINICAL INDICATION: Gestational diabetes TECHNIQUE: Multiple sonographic images of the pelvis were obtained. Transabdominal views of the g ravid uterus are available for review. The images were reviewed on a PACS workstation. COMPARISON: None FINDINGS: breathing movement = 2/2 tone = 2/2 motion = 2/2 JOSE MANUEL = 2/2 JOSE MANUEL = 20.1 cm Single live intrauterine with cardiac activity of 157 bpm. position is cephal ic. The placenta is posterior. IMPRESSION: 1. Single live intrauterine gestation. 2. Biophysical profile = 8/8. 3. JOSE MANUEL = 20.1 cm. RPTAT: HH .Lynsey Tsai MD, MD Date Time Electronically viewed and signed by .Lynsey Tsai MD, on 02/02/2017 14:41 .G/
--- NOTE | 2017-02-02 15:24 | TRIAGE ---
OB Triage Datetime Report Generated by CPN: 02/02/2017 15:23 Datetime: 02/02/2017 15:03 Stage of : OB Triage Datetime: 02/02/2017 14:54 Bedside Blood Glucose: 84 Datetime: 02/02/2017 14:26 Stage of : OB Triage Assessment Type: Triage Maternal Assessment Level of Consciousness: Fully Conscious DTR's/Clonus: DTRs 2+; No Clonus Headache: Denies Blurred Vision: No Respiratory Effort: Unlabored; Regular Rhythm; Equal Expansion Breath Sounds, Left: Clear and Equal Breath Sounds, Right: Clear and Equal Nausea/Vomiting: Denies RUQ Epigastric Pain: Denies Facial Edema: None Temperature Route: Axillary Fall Risk Assessment History of Falling: (0) No Secondary Diagnosis: (0) No Ambulatory Aid: (0) Bedrest/Nurse Assist IV Therapy: (0) No Gait: (0) Normal/Bedrest/Immobile Mental Status: (0) Oriented to Own Ability Fall Score: 0 Fall Risk Score Definition: No Risk: No action required Labor Evaluation Frequency: APPLIED Monitor Mode: External Pattern: Normal: <= 5 Contractions in 10 Minutes Resting Tone [place]: Relaxed Heart Rate FHR Baseline Rate: 155 Monitor Mode: External US Variability: Moderate 6-25 bpm Accelerations: None Decelerations: None Pain Assessment Pain Scale: 0 Pain Presence: None/Denies Pain Type: N/A Pain Goal: 3 Pain Relief Measures: Comfort Measures Datetime: 02/02/2017 14:25 Time of Arrival: 02/02/2017 14:00 EGA: 31.5 Arrived By: Ambulatory Arrived From: Home Chief Complaint: FOLLOW UP BIWEEKLY NST/BPP Movement: Present Contractions: Occasional Rupture of Membranes: Denies Vaginal Bleeding: None Vaginal Discharge: Denies Recent Sexual Intercouse: Denies Abdominal Trauma: Not Applicable Patient Complaints: None Time Provider Notified: 02/02/2017 14:15 Provider Notified: FROILAN Initial Plan: MONITOR, BPP/NST Datetime: 01/30/2017 12:34 Fall Score: 0 Fall Risk Score Definition: No Risk: No action required Datetime: 01/30/2017 12:33 EGA: 31.2 Datetime: 01/26/2017 13:12 EGA: 30.5 Datetime: 01/24/2017 12:15 Fall Score: 0 Fall Risk Score Definition: No Risk: No action required Datetime: 01/24/2017 12:12 EGA: 30.3
--- NOTE | 2017-02-02 16:44 | QN ---
Documentation Comment ipu 31 weeks gdm vss exam wnl a/p iup 31 weeks gdm stable dc home DEACON DUMONT MD Feb 02, 2017 16:44
== END 2017-02-02 15:15 | disposition home or self-care (01) ==
LOC: L-D 14:10 → OBT 14:10
PROVIDERS: ATTEND Obstetrics & Gynecology
DX: O24.419 Gestational diabetes mellitus in pregnancy, unspecified control (principal); Z3A.31 31 weeks gestation of pregnancy
CPT/HCPCS: 76818; 82962; Z7500; G0463

== ENCOUNTER 2017-02-05 16:04 | Outpatient (CLI) | payer MEDICAID ==
[~2017-02-05] VITALS: Ht 152.4 cm; Wt 72.9 kg
[2017-02-05 16:24] VITALS: BMI 31.4
[2017-02-05 16:29] VITALS: BP 115/53; PULSE 79; RESP 19; Ht 152.4 cm; Wt 72.9 kg
--- NOTE | 2017-02-05 16:41 | RADRPT ---
PROCEDURE: OB ultrasound for biophysical profile CLINICAL INDICATION: Gestational diabetes mellitus. TECHNIQUE: Multiple sonographic images of the pelvis were obtained. Transabdominal view of the gr avid uterus are available for review. The images were reviewed on a PACS workstation. COMPARISON: 02/02/2017. FINDINGS: breathing movement = 2/2 tone = 2/2 motion = 2/2 Quantitative amniotic fluid volume = 2/2 JOSE MANUEL = 14.5 cm Single live intrauterine with cardiac activity at 130 beats per minute. There is a posterior placenta without previa or abruption. IMPRESSION: 1. Single living intrauterine gestation in cephalic position. 2. Biophysical profile = 8/8. 3. JOSE MANUEL = 14.5 cm. RPTAT: [facility] Physician Anne Date Time Electronically viewed and signed by Physician Anne on 02/05/2017 16:41 /
--- NOTE | 2017-02-05 17:43 | TRIAGE ---
OB Triage Datetime Report Generated by CPN: 02/05/2017 17:43 Datetime: 02/05/2017 17:24 Stage of : OB Triage Maternal Assessment Level of Consciousness: Fully Conscious DTR's/Clonus: DTRs 1+ Headache: Denies Breath Sounds, Left: Clear and Equal Breath Sounds, Right: Clear and Equal Nausea/Vomiting: Denies RUQ Epigastric Pain: Denies Monitor Mode: External Resting Tone [place]: Relaxed Heart Rate FHR Baseline Rate: 135 Monitor Mode: External US Variability: Moderate 6-25 bpm Accelerations: 15X15 Decelerations: None Category: Category I Comments: BPP 8/8 JOSE MANUEL 14.5CM PT TO F/U IN NST FOR NST AND BPP Pain Assessment Pain Scale: 0 Pain Presence: None/Denies Pain Type: N/A Pain Goal: 3 Vaginal Exam Membrane Status: Intact Datetime: 02/05/2017 16:30 Maternal Assessment Level of Consciousness: Fully Conscious DTR's/Clonus: DTRs 1+ Headache: Denies Blurred Vision: No Respiratory Effort: Unlabored Breath Sounds, Left: Clear and Equal Breath Sounds, Right: Clear and Equal Nausea/Vomiting: Denies RUQ Epigastric Pain: Denies Facial Edema: None Labor Evaluation Frequency: X1 Monitor Mode: External Duration (sec)2399: 70 Quality: Mild Pattern: Normal: <= 5 Contractions in 10 Minutes Resting Tone [place]: Relaxed Heart Rate FHR Baseline Rate: 135 Monitor Mode: External US Variability: Moderate 6-25 bpm Accelerations: 15X15 Decelerations: None Category: Category I Pain Assessment Pain Scale: 0 Pain Presence: None/Denies Pain Type: N/A Pain Goal: 3 Vaginal Exam Membrane Status: Intact Datetime: 02/05/2017 16:20 Assessment Type: Triage Maternal Assessment Level of Consciousness: Fully Conscious DTR's/Clonus: DTRs 2+; No Clonus Headache: Denies Blurred Vision: No Respiratory Effort: Unlabored; Regular Rhythm; Equal Expansion Breath Sounds, Left: Clear and Equal Breath Sounds, Right: Clear and Equal Nausea/Vomiting: Denies RUQ Epigastric Pain: Denies Lower Extremities Edema: None Degree: None Upper Extremities Edema: None Degree: None Facial Edema: None Fall Risk Assessment History of Falling: (0) No Secondary Diagnosis: (0) No Ambulatory Aid: (0) Bedrest/Nurse Assist IV Therapy: (0) No Gait: (0) Normal/Bedrest/Immobile Mental Status: (0) Oriented to Own Ability Fall Score: 0 Fall Risk Score Definition: No Risk: No action required Datetime: 02/05/2017 16:00 Time of Arrival: 02/05/2017 16:00 EGA: 32.1 Arrived By: Ambulatory Arrived From: Home Chief Complaint: PT CAMNE IN FOR NST AND BPP FOR GDM Movement: Present Contractions: Denies/Absent Rupture of Membranes: Denies Vaginal Bleeding: None Vaginal Discharge: Denies Recent Sexual Intercouse: Denies Abdominal Trauma: Not Applicable Patient Complaints: Other Additional Patient Complaints: NONE Initial Plan: NST AND BPP Datetime: 02/02/2017 14:26 Fall Score: 0 Fall Risk Score Definition: No Risk: No action required Datetime: 02/02/2017 14:25 EGA: 31.5 Datetime: 01/30/2017 12:34 Fall Score: 0 Fall Risk Score Definition: No Risk: No action required Datetime: 01/30/2017 12:33 EGA: 31.2 Datetime: 01/26/2017 13:12 EGA: 30.5 Datetime: 01/24/2017 12:15 Fall Score: 0 Fall Risk Score Definition: No Risk: No action required Datetime: 01/24/2017 12:12 EGA: 30.3
--- NOTE | 2017-02-05 19:04 | QN ---
Documentation Comment iup 32 g1po\ gdm vss nst reactive a/p iup 32 weeks gdm stable continue care DEACON DUMONT MD Feb 05, 2017 19:04
== END 2017-02-05 17:35 | disposition home or self-care (01) ==
LOC: OBT 16:04 → L-D 16:05 → OBT 17:35
PROVIDERS: ATTEND Obstetrics & Gynecology
DX: O24.419 Gestational diabetes mellitus in pregnancy, unspecified control (principal); Z3A.32 32 weeks gestation of pregnancy
CPT/HCPCS: 76818; Z7500; G0463

== ENCOUNTER 2017-02-07 18:59 | Outpatient (CLI) | payer MEDICAID ==
[~2017-02-07] VITALS: Ht 154.9 cm; Wt 74.4 kg
[2017-02-07 19:33] VITALS: Ht 154.9 cm; Wt 74.4 kg
[2017-02-07 19:34] VITALS: BP 110/68; PULSE 75; RESP 18
--- NOTE | 2017-02-07 19:57 | RADRPT ---
PROCEDURE: US biophysical profile. CLINICAL INDICATION: Cholestasis. well-being. TECHNIQUE: Multiple sonographic images of the uterus were obtained. The images were revi ewed on a PACS workstation. COMPARISON: 02/05/2017. FINDINGS: There is a single live intrauterine gestation. heart rate is 148 beats per minute. The position is cephalic. The placenta is posterior, grade 0-2. The JOSE MANUEL is 15.5 cm. Breathing Movement: 2 Gross Body Movement: 2 Tone: 2 Qualitative Amniotic Fluid Volume: 2 TOTAL: 8 IMPRESSION: 1. Single viable intrauterine gestation. 2. Biophysical profile = 12/27. 3. JOSE MANUEL = 15.5 cm. RPTAT: HH .J Luis Whitley MD, MD Date Time Electronically viewed and signed by .J Luis Whitley MD, MD on 02/07/2017 19:57 .N/
--- NOTE | 2017-02-07 21:29 | TRIAGE ---
OB Triage Datetime Report Generated by CPN: 02/07/2017 21:29 Datetime: 02/07/2017 20:34 Labor Evaluation Frequency: x2 Monitor Mode: External Duration (sec)2399: 50-70 Pattern: Normal: <= 5 Contractions in 10 Minutes Resting Tone [place]: Relaxed Heart Rate FHR Baseline Rate: 140 Monitor Mode: External US Variability: Moderate 6-25 bpm Accelerations: 15X15 Decelerations: None Category: Category I Datetime: 02/07/2017 19:38 Labor Evaluation Frequency: x1 Monitor Mode: External Duration (sec)2399: 100 Quality: Mild Pattern: Normal: <= 5 Contractions in 10 Minutes Resting Tone [place]: Relaxed Heart Rate FHR Baseline Rate: 140 Monitor Mode: External US Variability: Moderate 6-25 bpm Accelerations: 15X15 Decelerations: None Category: Category I Datetime: 02/07/2017 19:26 Time of Arrival: 02/07/2017 18:50 EGA: 32.3 Arrived By: Ambulatory Arrived From: Office Chief Complaint: Sent from office for NST/BPP Movement: Present Contractions: Denies/Absent Rupture of Membranes: Denies Vaginal Bleeding: None Vaginal Discharge: Denies Recent Sexual Intercouse: Denies Abdominal Trauma: Not Applicable Patient Complaints: None Initial Plan: CEFM Datetime: 02/07/2017 19:21 Stage of : OB Triage Assessment Type: Triage Maternal Assessment Level of Consciousness: Fully Conscious DTR's/Clonus: DTRs 2+; No Clonus Headache: Denies Blurred Vision: No Respiratory Effort: Unlabored; Regular Rhythm; Equal Expansion Breath Sounds, Left: Clear and Equal Breath Sounds, Right: Clear and Equal Nausea/Vomiting: Denies RUQ Epigastric Pain: Denies Lower Extremities Edema: None Degree: None Upper Extremities Edema: None Degree: None Facial Edema: None Temperature Route: Axillary Fall Risk Assessment History of Falling: (0) No Secondary Diagnosis: (0) No Ambulatory Aid: (0) Bedrest/Nurse Assist IV Therapy: (0) No Gait: (0) Normal/Bedrest/Immobile Mental Status: (0) Oriented to Own Ability Fall Score: 0 Fall Risk Score Definition: No Risk: No action required Pain Assessment Pain Scale: 0 Pain Presence: None/Denies Pain Type: N/A Datetime: 02/07/2017 19:19 Monitor Mode: External US Datetime: 02/05/2017 16:20 Fall Score: 0 Fall Risk Score Definition: No Risk: No action required Datetime: 02/05/2017 16:00 EGA: 32.1 Time Provider Notified: 02/05/2017 17:30 Provider Notified: ESHAGHIAN Datetime: 02/02/2017 14:26 Fall Score: 0 Fall Risk Score Definition: No Risk: No action required Datetime: 02/02/2017 14:25 EGA: 31.5 Datetime: 01/30/2017 12:34 Fall Score: 0 Fall Risk Score Definition: No Risk: No action required Datetime: 01/30/2017 12:33 EGA: 31.2 Datetime: 01/26/2017 13:12 EGA: 30.5 Datetime: 01/24/2017 12:15 Fall Score: 0 Fall Risk Score Definition: No Risk: No action required Datetime: 01/24/2017 12:12 EGA: 30.3
--- NOTE | 2017-02-07 22:18 | PN ---
Triage Information Date/Time Reason for visit: NST/JOSE MANUEL for surveillance (GDM/Cholestasis w/ elevated liver enzymes) Weeks of Gestation 32+3 /Para 1/0 Diabetes: gestational Diabetes management: diet controlled Hypertention: none Additional information Reports normal FM, denies LOF, VB or UCs. Sent from Dr. Ayala's clinic for testing. Objective Vital Signs Date Time Temp Pulse Resp B/P Pulse Ox O2 Delivery O2 Flow Rate FiO2 02/07/17 19:34 98.3 75 18 110/68 Room Air Heart Rate: 130's Heart Rate Comments mod isabell, +accels, no decels Contractions: None Results/Medications Imaging Results PROCEDURE: US biophysical profile. CLINICAL INDICATION: Cholestasis. well-being. TECHNIQUE: Multiple sonographic images of the uterus were obtained. The images were reviewed on a PACS workstation. COMPARISON: 02/05/2017. FINDINGS: There is a single live intrauterine gestation. heart rate is 148 beats per minute. The position is cephalic. The placenta is posterior, grade 0-2. The JOSE MANUEL is 15.5 cm. Breathing Movement: 2 Gross Body Movement: 2 Tone: 2 Qualitative Amniotic Fluid Volume: 2 TOTAL: 8 IMPRESSION: 1. Single viable intrauterine gestation. 2. Biophysical profile = 8/8. 3. JOSE MANUEL = 15.5 cm. Disposition: Discharge Assessment/Plan Reactive NST, normal JOSE MANUEL. Results reviewed w/Dr. Ayala by hearing aid repair technician and given d/c order. Pt appropriate for d/c home. PTL, PPROM and FKC precautions reviewed. Questions answered to patient's satisfaction prior to discharge. F/up as scheduled w/Dr. Ayala's office TYLOR COTTON MD Feb 07, 2017 22:18
== END 2017-02-07 21:23 | disposition home or self-care (01) ==
LOC: OBT 18:59 → L-D 19:02 → OBT 21:23
PROVIDERS: ATTEND Obstetrics & Gynecology
DX: O24.419 Gestational diabetes mellitus in pregnancy, unspecified control (principal); Z3A.32 32 weeks gestation of pregnancy
CPT/HCPCS: 76818; G0463

== ENCOUNTER 2017-03-01 05:32 | Inpatient (IN) | payer MEDICAID ==
[~2017-03-01] VITALS: Ht 157.5 cm; Wt 74.9 kg
[2017-03-01 05:36] VITALS: Ht 157.5 cm; Wt 74.9 kg
[2017-03-01] MEDS ORDERED: LACTATED RINGER'S 1,000 ML IV SCH (05:37)
[2017-03-01] MEDS ORDERED: CEFAZOLIN 2 GM/50 ML (PMX) 50 ML IVPB ONE (05:38)
[2017-03-01 05:46] VITALS: BP 112/71; PULSE 80; RESP 18
[2017-03-01] MEDS ORDERED: METHYLERGONOVINE 0.2 MG INJ IM PRN ×2 (06:00→09:00)
[2017-03-01] MEDS ORDERED: MISOPROSTOL 200 MCG TAB PR PRN ×2 (06:00→09:00)
[2017-03-01] MEDS ORDERED: CARBOPROST 250 MCG INJ IM PRN ×2 (06:00→09:00)
[2017-03-01] MEDS ORDERED: OXYTOCIN 30 UNITS/LR 500 ML IV SCH ×2 (06:00→07:00)
[2017-03-01] MEDS ORDERED: OXYTOCIN 30 UNITS/LR 500 ML IV PRN ×2 (06:00→09:00)
[2017-03-01] MEDS ORDERED: CEFAZOLIN 2 GM/50 ML (PMX) 50 ML IV SCH (06:00)
[2017-03-01 06:21] LABS: BASOPHILS % 0.4 % (0.0-2.0); EOSINOPHILS # 0.1 10^3/ul (0.0-0.5); HEMATOCRIT 31.5 % (37.0-47.0); HEMOGLOBIN 10.5 g/dl (12.0-16.0); LYMPHOCYTES # 2.9 10^3/ul (0.8-2.9); LYMPHOCYTES % 27.9 % (15.0-51.0); MEAN CORPUSCULAR HGB CONC 33.3 g/dl (32.0-37.0); MEAN PLATELET VOLUME 11.5 fl (7.4-10.4); MONOCYTE # 0.7 10^3/ul (0.3-0.9); MONOCYTES % 6.2 % (0.0-11.0); NEUTROPHIL # 6.7 10^3/ul (1.6-7.5); NUCLEATED RED BLOOD CELLS% 0.3 /100WBC (0.0-0.0); PLATELET COUNT 373 10^3/UL (140-415); RED BLOOD COUNT 3.89 10^6/ul (4.20-5.40); RED CELL DISTRIBUTION WIDTH 15.7 % (11.5-14.5); WHITE BLOOD COUNT 10.5 10^3/ul (4.8-10.8)
[2017-03-01 06:41] LABS: INR 0.81; PROTIME 11.2 Sec (12.2-14.2); PT RATIO 0.9
[2017-03-01 06:42] LABS: PARTIAL THROMBOPLASTIN TIME 28.7 Sec (25.0-35.0)
[2017-03-01] MEDS ORDERED: OXYTOCIN 30 UNITS/LR 500 ML IV ONE (07:22)
[2017-03-01] MEDS ORDERED: METOCLOPRAMIDE 10 MG INJ ONE (07:22)
[2017-03-01] MEDS ORDERED: ONDANSETRON 4 MG INJ ONE (07:22)
[2017-03-01] MEDS ORDERED: morphine SULFATE/PF (10 MG/10 ML) INJ ONE (07:22)
[2017-03-01] MEDS ORDERED: OXYTOCIN 10 UNIT INJ ONE (07:22)
[2017-03-01] MEDS ORDERED: EPHEDrine SULFATE 50 MG/5 ML SYG ONE (07:22)
--- NOTE | 2017-03-01 07:36 | PREOPHP ---
DATE OF ADMISSION: 03/01/2017 HISTORY OF PRESENT ILLNESS: Ms. Jaylen West is a 21-year-old 1, para 0, EDC 03/28/2017, int rauterine at 36 weeks gestational age with current history of cholestasis of , re commended by perinatologist to be delivered at 36 weeks' gestational age. Her care took pl dorothy at [facility]. PAST MEDICAL HISTORY: None. MEDICATIONS: vitamins and Actigall. PAST SURGICAL HISTORY: None. OBSTETRICAL HISTORY: x1, vaginal delivery. GYNECOLOGIC HISTORY: 12, regular 3 to 4 days. Patient was tested positive for chlamydia in this pr esent and was treated on 08/15/2016 and she is currently GDMA1 in this . SOCIAL HISTORY: Denies any smoking, drugs or alcohol. FAMILY HISTORY: None. REVIEW OF SYSTEMS: All within normal except history of present illness. PHYSICAL EXAMINATION: HEENT: Within normal. LUNGS: CTA bilateral. CARDIOVASCULAR: S1, S2, regular rhythm. ABDOMEN: Gravid, nontender. Negative CVA bilateral. EXTREMITIES: Negative edema. No calf tenderness. PELVIC: Vaginal exam deferred. ASSESSMENT: A 21-year-old 1, para 0, intrauterine at 36 weeks' gestational age, G DMA1 cholestasis of . Desires elective delivery versus induction. PLAN: Consent for primary . Risks, benefits and alternatives explained. All questions we re answered. Dictated By: JAHAIRA SALAZAR/JONEL Conf#: [id number] DID#: [id number]
--- NOTE | 2017-03-01 08:35 | SIPON ---
Date/Time of Note Date/Time of Note DATE: 03/01/17 TIME: 08:33 Operative Report Preoperative Diagnosis A 21-year-old 1, para 0, intrauterine at 36 weeks' gestational age, GDMA1 cholestasis of . Desires elective delivery versus induction. Postoperative Diagnosis same Operation/Procedure Performed primary low transverse CD Surgeon see signature line commercial assistant Dr. Nitish Pascual Anesthesia: spinal Estimated blood loss: other (500) Transfusion Required none Specimen none Grafts/Implants none Complications none JAHAIRA DOMINGUEZ MD Mar 01, 2017 08:35
[2017-03-01] MEDS ORDERED: OXYCODONE/ACETAMINOPHEN (5/325) TAB PO PRN ×2 (09:00)
[2017-03-01] MEDS ORDERED: LANOLIN 7 GM TUBE TOP PRN (09:00)
[2017-03-01 10:50] VITALS: BP 120/64; PULSE 67; RESP 18
[2017-03-01] MEDS: LACTATED RINGER'S 1,000 ML IV SCH ×2 (10:50→18:31)
[2017-03-01] MEDS: SENNA/DOCUSATE NA (8.6MG/50MG) TAB PO SCH ×2 (10:50→21:00)
[2017-03-01] MEDS: CEFAZOLIN 2 GM/50 ML (PMX) 50 ML IV SCH ×3 (10:50→21:11)
[2017-03-01] MEDS: ACCU-CHEK XX SCH ×3 (10:50→20:05)
[2017-03-01] MEDS ORDERED: ONDANSETRON 4 MG INJ IV PRN (11:30)
[2017-03-01] MEDS ORDERED: DIPHENHYDRAMINE 50 MG INJ IV PRN (11:30)
[2017-03-01] MEDS ORDERED: KETOROLAC 30 MG INJ IV PRN (11:30)
[2017-03-01] MEDS ORDERED: NALOXONE (0.4 MG/ML) INJ IV PRN (11:30)
[2017-03-01] MEDS ORDERED: ZOLPIDEM 5 MG TAB PO PRN (11:30)
[2017-03-01] MEDS ORDERED: HYDROmorphONE 1 MG/ML SYG IV PRN ×2 (11:30)
[2017-03-01] MEDS ORDERED: NALBUPHINE HCL (10 MG/1 ML) INJ IV PRN (11:30)
[2017-03-01] MEDS: IBUPROFEN 600 MG TAB PO SCH ×2 (12:00→18:00)
[2017-03-01 16:50] VITALS: BP 121/66; RESP 18
[2017-03-01 20:30] VITALS: BP 108/52; PULSE 91; RESP 15
[2017-03-02] MEDS: LACTATED RINGER'S 1,000 ML IV SCH ×2 (00:35→03:28)
[2017-03-02 00:50] VITALS: BP 116/59; PULSE 83; RESP 16
[2017-03-02 04:00] VITALS: BP 97/50; PULSE 76; RESP 16
[2017-03-02] MEDS: IBUPROFEN 600 MG TAB PO SCH ×4 (06:00→18:00)
[2017-03-02 07:15] VITALS: BP 107/50; PULSE 76; RESP 19
--- NOTE | 2017-03-02 07:27 | OPR ---
DATE OF OPERATION: 03/01/2017 PREOPERATIVE DIAGNOSES: Intrauterine at 36 weeks gestational age, gestational diabetes rachael litus A1, cholestasis of . Desires elective delivery versus induction POSTOPERATIVE DIAGNOSES: Intrauterine at 36 weeks gestational age, gestational diabetes m ellitus A1, cholestasis of . Desires elective delivery versus induction. PROCEDURE: Primary low transverse delivery via Pfannenstiel incision. SURGEON: Quinn Gallego MD FIRER LOCOMOTIVE CRANE: Nitish Pascual MD ANESTHESIA: Spinal. COMPLICATIONS: None. ESTIMATED BLOOD LOSS: 500 mL. FINDINGS: A viable male in cephalic presentation, 9 and 9 respectively at 1 and 5 obed apple. Weight 5 pounds 8 ounces, x1 cord around the neck, reducible was noted. DESCRIPTION OF PROCEDURE: After explaining the risks, benefits and alternatives, the patient and co nsent signed in chart, the patient was taken to the operating room where spinal anesthesia was found to be adequate. She was then prepared and draped in normal sterile fashion in dorsal supine positi on with a leftward tilt. A Pfannenstiel skin incision was made with a scalpel and carried to the un derlying layer of the fascia. The fascia was incised in the midline and incision was extended later ally with Daniels scissors. The superior aspect of the fascial incision was grasped with curved clamps , elevated and the underlying rectus muscles dissected off bluntly. Attention was then turned to th e inferior aspect of the incision which in similar fashion was grasped, tented up with curved clamps and the rectus muscles dissected off bluntly. The rectus muscle was in midline, peritone um identified, tented up and entered sharply with Metzenbaum scissors. The peritoneal incision was extended superiorly with good visualization of bladder. The bladder blade was then inserted and the vesicouterine peritoneum identified, grasped with pickups and entered sharply with Metzenbaum sciss ors. This incision was extended laterally and a bladder flap created digitally. The bladder blade was then reinserted and the lower segment incised in transverse fashion with a scalpel. The uterine incision was then extended laterally. The bladder blade was removed and the 's head delivere d atraumatically. The nose and mouth were suctioned and cord clamped and cut. The was isa d off to the awaiting instrumentation technician. The placenta was then removed. The uterus exteriorized and logan ared of all clots and debris. The uterine incision was repaired with 1-0 chromic in a running janel d fashion. A second layer of same suture was used for imbrication and obtained excellent hemostasis . The uterus was returned to the abdomen. The gutters were cleared of all clots. The peritoneum a nd rectus abdominis muscles were reapproximated with 3-0 Vicryl in interrupted fashion. The fascia was reapproximated with 0 Vicryl in running fashion. The subcutaneous tissue was reapproximated wit h 2-0 plain gut in a running fashion. The skin was closed with absorbable mac. The patient marycruz erated procedure well. Sponge, lap and needle counts correct x2. The patient was taken to recovery room in stable condition. Dictated By: QUINN SALAZAR/JONEL Conf#: [id number] DID#: [id number]
[2017-03-02] MEDS: SENNA/DOCUSATE NA (8.6MG/50MG) TAB PO SCH ×2 (09:00→10:21)
[2017-03-02 09:59] LABS: BASOPHILS % 0.3 % (0.0-2.0); EOSINOPHILS # 0.2 10^3/ul (0.0-0.5); EOSINOPHILS % 1.6 % (0.0-7.0); HEMATOCRIT 27.7 % (37.0-47.0); HEMOGLOBIN 9.2 g/dl (12.0-16.0); LYMPHOCYTES # 2.2 10^3/ul (0.8-2.9); LYMPHOCYTES % 17.6 % (15.0-51.0); MEAN CORPUSCULAR HEMOGLOBIN 27.3 pg (29.0-33.0); MEAN CORPUSCULAR HGB CONC 33.2 g/dl (32.0-37.0); MEAN CORPUSCULAR VOLUME 82.2 fl (82.0-101.0); MEAN PLATELET VOLUME 10.9 fl (7.4-10.4); MONOCYTE # 0.7 10^3/ul (0.3-0.9); MONOCYTES % 5.9 % (0.0-11.0); NEUTROPHIL # 9.2 10^3/ul (1.6-7.5); NEUTROPHILS % 74.1 % (39.0-77.0); PLATELET COUNT 355 10^3/UL (140-415); RED BLOOD COUNT 3.37 10^6/ul (4.20-5.40); RED CELL DISTRIBUTION WIDTH 15.9 % (11.5-14.5); WHITE BLOOD COUNT 12.4 10^3/ul (4.8-10.8)
[2017-03-02 11:56] VITALS: BP 119/60; PULSE 81; RESP 19
--- NOTE | 2017-03-02 13:24 | QN ---
Documentation Comment Progress note postoperative day 1 Patient was seen and evaluated awake alert oriented 3 negative complaints Vital signs stable afebrile Abdomen soft nontender negative distention uterine fundus below umbilicus dressing clean Extremity negative edema no calf tenderness Assessment status post delivery postoperative day 1 stable afebrile Plan iron supplement continue present management encourage ambulation JAHAIRA DOMINGUEZ MD Mar 02, 2017 13:24
[2017-03-02 16:30] VITALS: BP 117/59; PULSE 70; RESP 18
[2017-03-02] MEDS: FERROUS SULFATE (EC) 325 MG TAB PO SCH (21:10)
[2017-03-03] MEDS: IBUPROFEN 600 MG TAB PO SCH ×4 (00:02→18:48)
[2017-03-03 04:50] VITALS: BP 110/50; PULSE 73; RESP 18
[2017-03-03 08:00] VITALS: BP 100/58; PULSE 77; RESP 18
[2017-03-03] MEDS: SENNA/DOCUSATE NA (8.6MG/50MG) TAB PO SCH ×2 (08:24→20:53)
[2017-03-03] MEDS: FERROUS SULFATE (EC) 325 MG TAB PO SCH ×2 (08:24→20:53)
--- NOTE | 2017-03-03 08:28 | QN ---
Documentation Comment Progress note postoperative day 2 Patient was seen and evaluated awake alert oriented 3 negative complaints Vital signs stable afebrile Abdomen soft nontender negative distention uterine fundus below umbilicus dressing clean Extremity negative edema no calf tenderness Assessment status post delivery postoperative day 2 stable afebrile Plan iron supplement continue present management encourage ambulation remove dressing today JAHAIRA DOMINGUEZ MD Mar 03, 2017 08:28
[2017-03-03 18:45] VITALS: BP 110/66; PULSE 72; RESP 18
[2017-03-03 19:40] VITALS: BP 110/70; PULSE 80; RESP 18
[2017-03-04] MEDS: IBUPROFEN 600 MG TAB PO SCH ×5 (00:48→23:58)
[2017-03-04 08:00] VITALS: BP 107/55; PULSE 90; RESP 18
[2017-03-04] MEDS: FERROUS SULFATE (EC) 325 MG TAB PO SCH ×2 (09:00→22:48)
[2017-03-04] MEDS: SENNA/DOCUSATE NA (8.6MG/50MG) TAB PO SCH ×2 (09:01→22:48)
--- NOTE | 2017-03-04 13:18 | QN ---
Documentation Comment POD #3 Pt wants to wait until tomorrow to go home as the baby is in the NICU and it will be easier to visit and feed her baby if she is here. +flatus/BM. Excellent pain management. T=98.3 BP 107/55 Fundus firm. Incision is clean, dry and intact. Ext NT, 1+ edema. P: Continue care and plan d/c tomorrow. PRINCESS ASHBY MD Mar 04, 2017 13:18
[2017-03-04 16:25] VITALS: BP 118/75; RESP 18
[2017-03-05] VITALS: BP 123/60; PULSE 77; RESP 20
[2017-03-05 04:00] VITALS: BP 118/57; PULSE 82; RESP 20
[2017-03-05] MEDS: IBUPROFEN 600 MG TAB PO SCH ×2 (05:53→11:42)
[2017-03-05 08:02] VITALS: BP 113/56; PULSE 87; RESP 18
[2017-03-05] MEDS: SENNA/DOCUSATE NA (8.6MG/50MG) TAB PO SCH (09:13)
[2017-03-05] MEDS: FERROUS SULFATE (EC) 325 MG TAB PO SCH (09:13)
--- NOTE | 2017-03-05 11:39 | DS ---
Date/Time of Note Date/Time of Note DATE: 03/05/17 TIME: 11:38 Obstetrical Discharge Record Final Diagnosis Final Diagnosis: Term delivered Section Section: Repeat Condition on Discharge Physical Assessment Voiding: Yes Bowel Movement: Yes Breast: Soft, non-tender Fundus: Firm Calf Tenderness: No Patient Condition: Stable DEACON DUMONT MD Mar 05, 2017 11:39
[2017-03-05 16:30] VITALS: BP 121/71; PULSE 72; RESP 18
== END 2017-03-05 18:36 | disposition home or self-care (01) | DRG 766 ==
LOC: L-D 05:32 → PP1 10:49
PROVIDERS: ADMIT Obstetrics & Gynecology; ATTEND Obstetrics & Gynecology
PROC: 10D00Z1 Extraction of Products of Conception, Low, Open Approach (ICD-10-PCS; principal; 2017-03-01 07:30)
DX: O99.62 Diseases of the digestive system complicating childbirth (principal); O24.410 Gestational diabetes mellitus in pregnancy, diet controlled; K80.20 Calculus of gallbladder without cholecystitis without obstruction; Z3A.36 36 weeks gestation of pregnancy; Z37.0 Single live birth
CPT/HCPCS: 82962; 85025; 85610; 85730; 86592; 86850; 86900; 86901; 87340; 99464; J0690; J1885; J2274; J2405; J2590; J2765; J7120